=== PATIENT | male | born 1955 | race Caucasian/White ===

== ENCOUNTER 2023-02-02 01:32 | Day surgery (SDC) | payer MEDICARE, OTHER, SELFPAY ==
[2023-01-21 11:50] VITALS: BMI 43.0
[2023-02-02 06:37] VITALS: BP 153/76; PULSE 71; RESP 16; TEMP 36.4; O2SAT 96; BMI 45.6
[2023-02-02] MEDS: LACTATED RINGERS 1,000 ML 150 ML IV CONT (06:53)
--- NOTE | 2023-02-02 07:27 | PM.HPGS ---
History of Present Illness History of Present Illness Consent: Risks, benefits, and alternatives have been discussed and questions answered. Patient agrees to proceed with procedure. Chief complaint: neoplasm screening Narrative: Mian Marsh is a 67 year old male Presents for screening colonoscopy. Patient has current weight appetite bowel movements are normal. Patient denies abdominal pain. He has had no bleeding. Family history noncontributory. He may have had a screening colonoscopy more than 15 years ago. Review of Systems Review of Systems: Review of systems noncontributory. [facility] Past Medical History Medical History (Updated 11/03/22 @ 14:49 by Rashawn Thakur MD) Allergies Body mass index (BMI) 45.0-49.9, adult Colon cancer screening DM type 2 (diabetes mellitus, type 2) Encounter to establish care Hypersomnolence Jock itch Nasal polyps Prostate cancer screening Umbilical hernia Family History Family History (Updated 11/03/22 @ 14:49 by Rashawn Thakur MD) Father Hypertension Heart disease Mother Heart disease Hypertension Cerebrovascular accident Sibling Esophageal cancer Cerebrovascular accident Hypertension Alcoholism Diabetes mellitus Heart disease Son Diabetes type I Social History Social History Social History: Pt quit smoking in 1998. Smoking packs per day: 1.5 Smoking cigarettes per day: 30.0 Years smoked: 30 Smoking pack-years: 45.00 Smoking status: Former smoker Tobacco type: cigarettes Second hand tobacco smoke exposure: No Alcohol intake: current Drinks per week: 1 Alcohol use details: rare, social ETOH Substance use: never Substance use type: does not use Lack of Transportation: No Lack of Food: Never True Current Housing: I Have Housing Concerned About Future Housing: No Difficulty Paying Gas/Electric Bills: No Difficulty Paying for Meds: No Currently Unemployed: No Education: Associate Degree Difficulty w/ Childcare or Family Care: No Living arrangements: with family Occupation/Education: occupation Gender identity (if verbalized by the patient): Male Spiritual care concerns: No Meds Home Medications and Allergies Home Medications Medication Instructions Recorded Confirmed Type zolpidem 10 mg tablet (Ambien) 10 mg PO ONCE #1 tablet 10/14/22 02/02/23 Rx cholecalciferol (vitamin D3) 50 50 mcg PO DAILY #90 caps 10/26/22 02/02/23 Rx mcg (2,000 unit) capsule fluticasone propionate 50 See Rx Instructions .Route 12/17/22 02/02/23 Rx mcg/actuation nasal .COMPLEX #48 grams spray,suspension Allergies Allergy/AdvReac Type Severity Reaction Status Date / Time No Known Allergies Allergy Mild Verified 02/02/23 06:42 Vital Signs Vital Signs - 24 hr 02/02/23 06:37 Temperature 97.6 F Pulse Rate 71 Respiratory Rate 16 Blood Pressure 153/76 H Pulse Oximetry 96 Oxygen Delivery Room Air Exam Narrative: Physical exam reveals patient to be alert. Vital signs stable. HEENT exam is unremarkable. Patient is anicteric. Lungs are clear to auscultation and percussion. Heart is without murmur or extra sounds. Abdomen bowel sounds are present soft nontender with no organomegaly. Digital external rectal exam is normal. Assessment and Plan Assessment and plan (1) Colon cancer screening: Code(s): Z12.11 - Encounter for screening for malignant neoplasm of colon Status: Acute Assessment and Plan: Patient presents for screening colonoscopy. He appears to be at average risk for colon polyps. Further recommendations may be given after endoscopy.
--- NOTE | 2023-02-02 08:01 | WPDANESEPPF ---
Anes - Initial Pre Proc Eval Procedure: Operation Date: 02/02/23 08:00 Proposed Procedures p Screening Colonoscopy - Gregorio Estrada MD Date/Time: 02/02/23 08:01 Surgeon: Gregorio Estrada MD Pre Op Diagnosis: neoplasm screening Patient Data Age: 67 Gender: M Height: 1.8 m Weight: 148.2 kg Last Vital Signs Temp 97.6 F 02/02/23 06:37 Pulse 71 02/02/23 06:37 Resp 16 02/02/23 06:37 BP 153/76 H 02/02/23 06:37 Pulse Ox 96 02/02/23 06:37 O2 Del Method Room Air 02/02/23 06:37 Allergies Allergy/AdvReac Type Severity Reaction Status Date / Time No Known Allergies Allergy Mild Verified 02/02/23 06:42 Home Medications Medication Instructions Recorded Confirmed Type zolpidem 10 mg tablet (Ambien) 10 mg PO ONCE #1 tablet 10/14/22 02/02/23 Rx cholecalciferol (vitamin D3) 50 50 mcg PO DAILY #90 caps 10/26/22 02/02/23 Rx mcg (2,000 unit) capsule fluticasone propionate 50 See Rx Instructions .Route 12/17/22 02/02/23 Rx mcg/actuation nasal .COMPLEX #48 grams spray,suspension Patient hx anesthesia problems: none Family hx anesthesia problems: none Results Review: All pre-operative results and documents have been reviewed as part of the pre-operative evaluation. [facility] Past Medical History Medical History (Updated 11/03/22 @ 14:49 by Rashawn Thakur MD) Allergies Body mass index (BMI) 45.0-49.9, adult Colon cancer screening DM type 2 (diabetes mellitus, type 2) Encounter to establish care Hypersomnolence Jock itch Nasal polyps Prostate cancer screening Umbilical hernia Family History Family History (Updated 11/03/22 @ 14:49 by Rashawn Thakur MD) Father Hypertension Heart disease Mother Heart disease Hypertension Cerebrovascular accident Sibling Esophageal cancer Cerebrovascular accident Hypertension Alcoholism Diabetes mellitus Heart disease Son Diabetes type I Social History Social History Social History: Pt quit smoking in 1998. Smoking packs per day: 1.5 Smoking cigarettes per day: 30.0 Years smoked: 30 Smoking pack-years: 45.00 Smoking status: Former smoker Tobacco type: cigarettes Second hand tobacco smoke exposure: No Alcohol intake: current Drinks per week: 1 Alcohol use details: rare, social ETOH Substance use: never Substance use type: does not use Lack of Transportation: No Lack of Food: Never True Current Housing: I Have Housing Concerned About Future Housing: No Difficulty Paying Gas/Electric Bills: No Difficulty Paying for Meds: No Currently Unemployed: No Education: Associate Degree Difficulty w/ Childcare or Family Care: No Living arrangements: with family Occupation/Education: occupation Gender identity (if verbalized by the patient): Male Spiritual care concerns: No Anes - Eval Final PreProcedure Day of Procedure 02/02/23 08:01 Patient weight: morbidly obese Heart: regular rate and rhythm Lungs: clear to auscultation Airway: Mallampati scale class III Neurological: alert and oriented Last oral intake: >/= 8 hours ASA classification: III Emergent: no Anesthetic plan: proceed Anesthesia type and monitoring: general GIVS and standard monitoring Results Review: All pre-operative results and documents have been reviewed as part of the pre-operative evaluation. Informed Consent: The patient's anesthetic plan and its attendant risks and benefits were discussed with the patient/family/POA. Questions were solicited and answers provided to the satisfaction of the patient/family/POA.
[2023-02-02] MEDS: SIMETHICONE ORAL SUSPENSION 20 MG/0.3 ML 30 ML BOTTLE 0.6 ML IRRIGATION (08:20)
[2023-02-02 08:35] VITALS: BP 125/73; PULSE 76; RESP 20; O2SAT 99
[2023-02-02 08:45] VITALS: BP 136/82; PULSE 68; RESP 19; O2SAT 97
[2023-02-02 08:55] VITALS: BP 134/85; PULSE 66; RESP 20; O2SAT 99
== END 2023-02-02 09:03 | disposition home or self-care (01) ==
PROVIDERS: PCP Internal Medicine; Visit Provider Internal Medicine Gastroenterology
PROC: 0DJD8ZZ Inspection of Lower Intestinal Tract, Via Natural or Artificial Opening Endoscopic (ICD-10-PCS; CPT 45378; principal; 2023-02-02 08:00)
DX: Z12.11 Encounter for screening for malignant neoplasm of colon (principal); D12.3 Benign neoplasm of transverse colon; D17.5 Benign lipomatous neoplasm of intra-abdominal organs; K64.8 Other hemorrhoids; E11.9 Type 2 diabetes mellitus without complications; Z87.891 Personal history of nicotine dependence; E66.01 Morbid (severe) obesity due to excess calories; Z68.42 Body mass index [BMI] 45.0-49.9, adult
CPT/HCPCS: 45385; 88305; J2704; J7120

== ENCOUNTER 2023-03-30 06:16 | Outpatient (CLI) | payer MEDICARE, OTHER, SELFPAY ==
--- NOTE | 2023-04-15 21:21 | WPDSLEEPSTUD ---
Sleep Study Date of Study: 03/30/23 Ordering Provider: Ellis Muhammad MD Interpreting Physician: Sydni Hernandez DO Sleep Study Type: Split Polysomnogram Height: 1.83 m Weight: 147.418 kg Body Mass Index: 44.0 Neck Circumference (inches): 19 [place]: 15 Reason for Sleep Study Snoring, unrefreshing sleep Sleep History The patient is a 68-year-old male with diabetes, hyperlipidemia, morbid obesity and history of tobacco use that had a sleep study ordered by his primary care physician for evaluation of sleep apnea. The patient frequently awakens from sleep short of breath. He frequently awakens at night with heartburn, belching or cough. He constantly snores loudly enough that others complain. He constantly has trouble sleeping when he has a cold. He occasionally wakes up gasping for air throughout the night. He frequently has breathing problems at night observed by himself or others. He rarely sweats excessively at night. He occasionally has heart palpitations or irregular heartbeats during the night. He occasionally falls asleep during the day but never while driving. He denies sleep paralysis and cataplexy. He rarely has trouble at school or work due to sleepiness. He frequently experiences vivid dreamlike scenes upon awakening or falling asleep. He denies feeling afraid of going to sleep. He rarely has nightmares. He occasionally remembers his point he frequently has thoughts racing through his mind. He occasionally feels sad or depressed. He rarely has anxiety. He rarely has muscular tension. He frequently notices parts of his body jerk. He frequently kicks during the night. He rarely has crawling and aching feelings in his legs but occasionally has leg pain during the night. He denies grinding his teeth during sleep and denies awakening with morning jaw pain. He is occasionally bothered by pain during the day but rarely awakened by pain during the night. He occasionally wakes up feeling stiff in the morning. He occasionally wakes up with sore or achy muscles. He occasionally wakes up with pain in the neck, spine and other joints. He goes to bed at 11:30 p.m. on weekdays and at 12:30 a.m. on the weekends. He can take him up to an hour to fall asleep. He wakes up 3-4 times throughout the night to urinate and is able to fall back asleep within 5 minutes. He wakes up at 6:00 a.m. on both weekdays and weekends. He typically gets 4 hours of sleep per night. He will stay in bed for 5 minutes after waking up in the morning. He currently lives with his . He denies consuming any caffeinated beverages within 2 hours of bedtime. He denies engaging in physical exercise before bedtime. He will read and watch television before falling asleep. He will take naps in the afternoon or the evening but they are not refreshing. He consumes 2 cups of caffeinated beverage per day. He will have 1-2 alcoholic beverages once monthly. He quit smoking cigarettes 30 years ago. He denies recreational drug use. 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 Smoking packs per day: 1.5 Smoking cig
[2023-04-15 21:35] VITALS: BMI 44.0
== END 2023-03-31 08:24 | disposition home or self-care (01) ==
LOC: ANHCSM 06:16
PROVIDERS: PCP Internal Medicine; Visit Provider Internal Medicine
DX: G47.33 Obstructive sleep apnea (adult) (pediatric) (principal); I49.9 Cardiac arrhythmia, unspecified
CPT/HCPCS: 95811

== ENCOUNTER 2024-05-04 10:20 | Outpatient (CLI) | payer MEDICARE, OTHER, SELFPAY ==
--- OUTSIDE RECORDS SUMMARY | 2024-05-11 02:39 | XMS_ITS | Continuity of Care Document ---
Author Name [facility] Organization [facility] Care Team Providers Care Cowlman Name Role Phone [facility] Unavailable Unavailable Medications Combined list of outpatient medications from Department of Defense and Veterans Affairs facilities.Medications provided include 1) outpatient medications from the last 15 months, and 2) patient-reported medications. Medication Details Route Status Patient Instructions Prescription Expires Prescription Number Last Dispense Date Ordering Provider Order Date Order Qty Source ATORVASTATI N CALCIUM (atorvastat in calcium), 40 MG, TABLET, ORAL, [facility], 500 ea. BOTTLE Active [id number] 4 2023 90 Pharmac y Data Transac tion Service Facilit y ATORVASTATI N CALCIUM (atorvastat in calcium), 40 MG, TABLET, ORAL, [facility], 1000 ea. BOTTLE Cancele d [id number] : 2023 0 Pharmac y Data Transac tion Service Facilit y ATORVASTATI N CALCIUM (atorvastat in calcium), 40 MG, TABLET, ORAL, [facility], 1000 ea. BOTTLE Active [id number] 4 2023 90 Pharmac y Data Transac tion Service Facilit y ATORVASTATI N CALCIUM (atorvastat in calcium), 40 MG, TABLET, ORAL, [facility], 1000 ea. BOTTLE Cancele d [id number] : 2023 0 Pharmac y Data Transac tion Service Facilit y DOXYCYCLINE HYCLATE (doxycyclin e hyclate), 100 MG, TABLET, ORAL, [employer], 50 ea. BOTTLE Active [id number] 2023 20 Pharmac y Data Transac tion Service Facilit y FLUTICASONE PROPIONATE (FLUTICASON E PROPIONATE) , 50 MCG, SPRAY SUSP, NASAL, [facility] 16 g AER W/ADAP Cancele d [id number] : 2023 0 Pharmac y Data Transac tion Service Facilit y FLUTICASONE PROPIONATE (FLUTICASON E PROPIONATE) , 50 MCG, SPRAY SUSP, NASAL, [employer] 16 g AER W/ADAP Cancele d [id number] : 2023 0 Pharmac y Data Transac tion Service Facilit y FLUTICASONE PROPIONATE (FLUTICASON E PROPIONATE) , 50 MCG, SPRAY SUSP, NASAL, [employer] 16 g AER W/ADAP Active [id number] 4 2023 48 Pharmac y Data Transac tion Service Facilit y FLUTICASONE PROPIONATE (FLUTICASON E PROPIONATE) , 50 MCG, SPRAY SUSP, NASAL, [employer] 16 g AER W/ADAP Cancele d [id number] : 2023 0 Pharmac y Data Transac tion Service Facilit y FLUTICASONE PROPIONATE (FLUTICASON E PROPIONATE) , 50MCG, SPRAY SUSP, NASAL, [employer]OT[employer] CHAO, 16 g AER W/ADAP Active [id number] 2023 48 Pharmac y Data Transac tion Service Facilit y SYNJARDY XR (empagliflo zin/metform in HCl), 25-1000 MG, TAB BP 24H, ORAL, [facility]., 30 ea. BOTTLE Cancele d [id number] : 2023 0 Pharmac y Data Transac tion Service Facilit y SYNJARDY XR (empagliflo zin/metform in HCl), 25-1000 MG, TAB BP 24H, ORAL, [facility] ING., 30 ea. BOTTLE Active [id number] 4 2023 5 Pharmac y Data Transac tion Service Facilit y SYNJARDY XR (empagliflo zin/metform in HCl), 25-1000 MG, TAB BP 24H, ORAL, [employer] ING., 30 ea. BOTTLE Active [id number] 4 2023 90 Pharmac y Data Transac tion Service Facilit y SYNJARDY XR (empagliflo zin/metform in HCl), 25-1000 MG, TAB BP 24H, ORAL, [employer]., 90 ea. BOTTLE Cancele d [id number] : 2023 0 Pharmac y Data Transac tion Service Facilit y SYNJARDY XR (empagliflo zin/metform in HCl), 25-1000 MG, TAB BP 24H, ORAL, [employer]G., 90 ea. BOTTLE Active [id number] 4 2023 90 Pharmac y Data Transac tion Service Facilit y SYNJARDY XR (empagliflo zin/metform in HCl), 25-1000 MG, TAB BP 24H, ORAL, [employer]EHR[employer]ER ING., 90 ea. BOTTLE Cancele d [id number] : 2023 0 Pharmac y Data Transac tion Service Facilit y Encounters Combined list of: 1) Encounters from Department of Veterans Affairs facilities going back up to thelast 18 months. 2) Encounters from the Department of [facility] facilities going back up to 280 months. Location Location Details Encounter Type Encounter Number Reason For Visit Attending Provider ADM Date DC Date Status Disposition Source [facility] Outpatient Encounter [id number] 03/08 [facility] Procedures Combined list of: 1) Procedures from Department of [facility] facilities going back up to thelast 18 months, not all [place] non-surgical procedures are included; 2) All procedures from the Department of [facility] facilities. Procedure Procedure Type Code Date Perfomer Comments Mat vee LOCAL EXCISION OR DESTRUCTIO N OF INTRANASAL LESION 08/29/1990 [facility] Social History Combined list of available smoking, tobacco, and other social history from Department of Defense and Veterans Affairs facilities. Social History Type Response Date Comment Sourmars vee This section is an empty social history section. [facility]
--- OUTSIDE RECORDS SUMMARY | 2024-05-11 02:40 | XMS_ITS | Data Portability ---
[facility] Address [address] [place] [address] Assessment No assessment recorded. Plan of Treatment Reminders Order Date Submit Date Provider Last Modified By Organization Details Last Modified Time Details Appointments None recorde d. Lab None recorde d. Referral orthope dic surgeon referra l - Referra l request submitt ed to [facility] . They will fax you nikki rosario. 2016 017 [facility], [address] [place], [address], 7 16:50:30 Procedures None recorde d. Surgeries None recorde d. Imaging XR, knee, 4 or more view 2016 017 [facility] ([facility]), [address] [place], [address], 7 18:07:08 Medication Orders Augment in 500 mg-125 mg tablet 2013 014 [email or web address] [facility][id number], [address] [place], [address], 7 11:14:07 metform in 500 mg tablet 2020 021 [facility], [address] [place] [address], [address], 1 14:22:46 Enteric Coated Aspirin 81 mg tablet, delayed release 2020 021 INTERFACE [facility], [address] [place] [address], [address], 14:22:44 atorvas tatin 20 mg tablet 2020 021 INTERFACE [facility], [address] [place] [address], [address], 14:22:44 Patient TargetsNo targets recorded. Patient Instructions Encounter Date Encounter Id Patient Instructions Last Modified By Organization Details Last Modified Time 04/29/2020 [id number] When You Want to Lose Weight: Care Instructions [facility] Not available 04/29/2020 14:22:42 type 2 diabetes: care instructions si Not available 04/29/2020 14:22:42 Reason for Referral Orthopedic Surgeon Referral for Knee joint painful on movement Referral request submitted to [facility]. They will fax you referral. Referring Physician: Eliza De La Rosa, Internal Medicine, Encounter Date: 08/25/2016 Results Created Date Observation Date Name Description Value Unit Range Abnormal Flag Note LastModifiedBy Organization Detail LastModifiedTime 04/22/1904/23/2020 lipid panel , serum cholesterol, total 207 mg/dL <200 high Not Available [employer] [address] [place], [address], 04/23/2020 05:03:45 04/22/1904/23/2020 lipid panel , serum HDL cholesterol 48 mg/dL > or = 40 normal Not Available [employer] [address] [place], [address], 04/23/2020 05:03:45 04/22/1904/23/2020 lipid panel , serum triglyceride s 134 mg/dL <150 normal Not Available [employer] [address] [place], [address], 04/23/2020 05:03:45 04/22/1904/23/2020 lipid panel , serum LDL-choleste rol 134 mg/dL _(hamilton c) high Refer ence range : <100 Arnaud able range <100 mg/dL for prima ry preve ntion ; <70 mg/dL for patie nts with CHD or diabe tic patie nts with > or = 2 CHD risk facto rs. LDL-C is now calcu lated using the [facility] kins grayson avalos, which is a valid ated novel jose quinn than the Fried alex chaseat ion in the estim ation of LDL-C . Emilee avalos SS et al. DALIA. 2013; 310(1 9): 2061- 2068 (http ://ed ucati on.Qu estDi Empow Studioss. com/f aq/FA Q164) Not Available [facility] [address], [place], [address], 04/23/2020 05:03:45 04/22/1904/23/2020 lipid panel , serum chol/HDLC ratio 4.3 (calc ) <5.0 normal Not Available [facility] [address] [address] [place], [address], 04/23/2020 05:03:45 04/22/1904/23/2020 lipid panel , serum non HDL cholesterol 159 mg/dL _(hamilton c) <130 high For patie nts with diabe chuy plus 1 major ASCVD risk facto r, treat ing to a non-H DL-C goal of <100 mg/dL (LDL- C of <70 mg/dL ) is consi moosed a gerardo cerws optio n. Not Available [employer] [facility] [address], [place], [address], 04/23/2020 05:03:45 04/22/1904/23/2020 CMP, serum or plasm a glucose 223 mg/dL 65-99 high Fasti ng refer ence inter caroline For someo ne witho ut known diabe chuy, a gluco se value >125 mg/dL indic ates that they may have diabe chuy and this shoul d be confi rmed with a follo w-up test. Not Available [facility] [address], [place], [address], 04/23/2020 05:03:46 04/22/1904/23/2020 CMP, serum or plasm a urea nitrogen (BUN) 12 mg/dL 7-25 normal Not Available [address], [address], 04/23/2020 05:03:46 04/22/1904/23/2020 CMP, serum or plasm a creatinine 0.87 mg/dL 0.70-1 .25 normal For patie nts >49 years of age, the refer ence limit for Creat inine is appro ximat erasmo 13% highe r for peopl e ident ified as Afric an-Am suzette n. Not Available [address], [address], 04/23/2020 05:03:46 04/22/1904/23/2020 CMP, serum or plasm a eGFR non-afr. andorran 89 mL/mi n/1.7 3m2 > or = 60 normal Not Available [address] [address] [place], [address], 04/23/2020 05:03:46 04/22/1904/23/2020 CMP, serum or plasm a eGFR 104 mL/mi n/1.7 3m2 > or = 60 normal Not Available [employer] [address], [address], 04/23/2020 05:03:46 04/22/1904/23/2020 CMP, serum or plasm a BUN/creatini ne ratio NOT APPLIC ABLE (calc ) 6-22 Not Available [facility] [address], [address], 04/23/2020 05:03:46 04/22/1904/23/2020 CMP, serum or plasm a sodium 141 mmol/ L 135-14 6 normal Not Available [facility] [address], [address], 04/23/2020 05:03:46 04/22/1904/23/2020 CMP, serum or plasm a potassium 3.6 mmol/ L 3.5-5. 3 normal Not Available [address], [address], 04/23/2020 05:03:46 04/22/1904/23/2020 CMP, serum or plasm a chloride 102 mmol/ L 98-110 normal Not Available [address], [address], 04/23/2020 05:03:46 04/22/1904/23/2020 CMP, serum or plasm a carbon dioxide 29 mmol/ L 20-32 normal Not Available [address], [address], 04/23/2020 05:03:46 04/22/1904/23/2020 CMP, serum or plasm a calcium 8.9 mg/dL 8.6-10 .3 normal Not Available [address], [address], 04/23/2020 05:03:46 04/22/1904/23/2020 CMP, serum or plasm a protein, total 6.3 g/dL 6.1-8. 1 normal Not Available [address], [address], 04/23/2020 05:03:46 04/22/1904/23/2020 CMP, serum or plasm a albumin 3.8 g/dL 3.6-5. 1 normal Not Available [facility] [address], [address], 04/23/2020 05:03:46 04/22/1904/23/2020 CMP, serum or plasm a globulin 2.5 g/dL_ (calc ) 1.9-3. 7 normal Not Available [facility] [address] [place], [address], 04/23/2020 05:03:46 04/22/19 21 04/23/2020 CMP, serum or plasm a albumin/glob ulin ratio 1.5 (calc ) 1.0-2. 5 normal Not Available [facility] [address] [address] [place], [address], 04/23/2020 05:03:46 04/22/19 21 04/23/2020 CMP, serum or plasm a bilirubin, total 0.8 mg/dL 0.2-1. 2 normal Not Available [facility] [address], [address], 04/23/2020 05:03:46 04/22/19 21 04/23/2020 CMP, serum or plasm a alkaline phosphatase 62 U/L 35-144 normal Not Available [employer] [address], [address], 04/23/2020 05:03:46 04/22/19 21 04/23/2020 CMP, serum or plasm a AST 17 U/L 10-35 normal Not Available [facility] [address], [address], 04/23/2020 05:03:46 04/22/19 21 04/23/2020 CMP, serum or plasm a ALT 19 U/L 9-46 normal Not Available [facility] [address], [address], 04/23/2020 05:03:46 04/22/1904/23/2020 PSA, serum or plasm a PSA, total 0.2 NG/mL < or = 4.0 normal The total PSA value from this assay syste m is stand ardiz ed again st the WHO stand lissa. The test resul t will be appro ximat erasmo 20% lower when garett red to the equim olar- stand ardiz ed total PSA (Mcdonald man Coult er). Garett rison of seria l PSA resul ts shoul d be inter prete d with this fact in mind. This test was perfo rmed using the Sieme ns chemi lumin escen t metho d. Value s obtai chris from diffe rent assay metho ds canno t be used inter rahman eably . PSA level s, regar dless of value , shoul d not be inter prete d as absol [place] evide nce of the prese nce or absen ce of disea se. Not Available [facility] [address] [place], [address], 04/23/2020 05:03:46 04/22/19 21 04/23/2020 HbA1c (hemo globi n A1c), blood hemoglobin A1C 9.3 %_of_ total _HGB <5.7 high For someo ne witho ut known diabe chuy, a hemog lobin A1c value of 6.5% or great er indic ates that they may have diabe chuy and this shoul d be confi rmed with a follo w-up test. For someo ne with known diabe chuy, a value <7% indic ates that their diabe chuy is well contr olled and a value great er than or equal to 7% indic ates subop timal contr ol. A1c targe ts shoul d be indiv idual ized based on durat ion of diabe chuy, age, comor bid condi tions , and other consi derat ions. Curre ntly, no conse nsus exist s regar ding use of hemog lobin A1c for diagn osis of diabe chuy for child que. Not Available [employer] [facility] [address], [place], [address], 04/23/2020 05:03:47 08/28/19 17 08/26/2016 XR, knee No observ ation record ed. [email or web address] [facility] [address], [place], [address], 08/28/2016 11:56:29 Result Notes None recorded. Problems Name Problem SNOMED Code Status Onset Date Resolution Date Notes Provider Name and Address Organization Details Recorded Time Acute bronchitis 70681403 Active Eliza De La Rosa MD Attn: Ryann escalera,[address], [place], [address], [facility] 4 14:54:22 Acute pharyngitis 100247602 Active Eliza De La Rosa MD Attn: Ryann escalera,[address], [place], [address], [facility] 4 14:54:22 Obesity 682502601 Active Eliza De La Rosa MD Attn: Ryann escalera,[address], [place], [address], [facility] 4 14:54:22 Problem Notes None recorded. Procedures Surgical History None recorded. Imaging Results Imaging Date Name Status LastModified by Organiz ation Details LastModified Time 08/26/2016 XR, knee completed [email or web address] [facility] [address], [place], [address], 08/28/2016 11:56:29 Procedure Notes None recorded. Medical Equipment None Reported. Allergies No known drug allergies Medications Name Sig Start Date Stop Date Status Note LastModified by Organization Details LastModified Time Prescriptio n - New 08/25 completed Not Available Not Available Not Available metformin 500 mg tablet Take 1 tablet twice a day by oral route after meals for 90 days. 2020 active Not Available Not Available Not Avai lable atorvastati n 20 mg tablet Take 1 tablet every day by oral route at dinner for 90 days. 2020 active Not Available Not Available Not Avai lable gabapentin 300 mg capsule TAKE 1 CAPSULE BY MOUTH THREE TIMES DAILY DIRECTED active Not Available Not Available No t Available Enteric Coated Aspirin 81 mg tablet,may yed release Take 1 tablet every day by oral route after meals for 90 days. 2020 active Not Available Not Available Not Avai lable Augmentin 500 mg-125 mg tablet Take 1 tablet every 12 hours by oral route after meals for 7 days. 08/25 completed Not Available Not Available Not Available Vitals Date Recorded Respiratory rate Body weight Heart rate Body mass index (BMI) Body height Body temperature Systolic blood pressure Diastolic blood pressure Provider Name and Address Organization Details Last Updated DateTime 4 18 /min 426513. 6347 g 92 /min 42 kg/m2 182.88 cm 97.8 [degF] 124 mm[Hg] 86 mm[Hg] Aggie Polo RN [facility] 4 13:46:19 Date Recorded Body height Provider Name an d Address Organization Details Last Updated DateTime 08/25/2016 181.61 cm Ludwig Mcgovern MA [facility] 2016 11:14:53 Date Recorded Body weight Body mass index (BMI) Provider Name and Address Organization Details Last Updated DateTime 08/25/2016 319022.14 g 45 kg/m2 Ludwig Mcgovern MA [facility] 08/25/2016 11:15:00 Date Recorded Body temperature Provider Name a nd Address Organization Details Last Updated DateTime 08/25/2016 98.2 [degF] Ludwig Mcgovern MA [facility] 08/25/2016 11:16:39 Date Recorded Oxygen saturation Oxygen saturation in Arterial blood by Pulse oximetry Provider Name and Address Organization Details Last Updated DateTime 08/25/2016 97 % 97 % Ludwig Mcgovern MA [facility] 08/25/2016 11:17:12 Date Recorded Heart rate Provider Name an d Address Organization Details Last Updated DateTime 08/25/2016 91 /min Ludwig Mcgovern MA [facility] 2016 11:17:15 Date Recorded Systolic blood pressure Diastolic blood pressure Provider Name and Address Organization Details Last Updated DateTime 08/25/2016 126 mm[Hg] 78 mm[Hg] Ludwig Mcgovern MA [facility] 08/25/2016 11:18:58 Social History None recorded. Functional Status None recorded. Mental Status None recorded. Family History Nothing Reported. Medical History Condition Response Coronary Artery Disease N Other N Atrial Fibrillation N High Blood Pressure N Thyroid Problems N Kidney or Bladder Problems N Depression N COPD N Blood Clots N GI Problems N Skin Problems N Anemia N Heart Attack (CT) N Diabetes N Anxiety Disorder N Muscle, Joint, or Bone Problems N Seizures/Epilepsy N Acid Reflux (GERD) N Cancer N Stroke N Allergies N Asthma N High Cholesterol N Hepatitis N Liver Disease N Headaches N Osteoporosis N Heart Failure N Immunizations Vaccine Type Date Status Note Provider Nam e and Address Organization Details Recorded Time COVID-19, mRNA, LNP-S, PF, 100 mcg/0.5mL dose or 50 mcg/0.25mL dose 07/04/2020 completed Angelina Hartley MA null, [place] [facility] 07/04/2020 17:25:55 COVID-19, mRNA, LNP-S, PF, 100 mcg/0.5mL dose or 50 mcg/0.25mL dose 08/01/2020 completed Jacqueline Husain MA null, [place] [facility] 08/01/2020 15:53:20 Past Encounters Encounter ID Performer Location Encounter Start Date Encounter Closed Date Diagnosis/Indication Diagnosis SNOMED-CT Code Diagnosis ICD10 Code Diagnosis Note [id number] Teresa Acosta is [facility] (Adult Med) [address] [place] [id number] 04/04/2014 11:49:26 04/04/2014 17:50:29 Acute bronchitis 00582499 Acute pharyngitis 635978849 Obesity 292554476 History of abdominal hernia 769522331 [id number] Eliza De La Rosa MD [facility] (Adult Med) [address] [place] [phone] 08/25/2016 10:54:52 08/25/2016 18:07:07 Knee joint painful on movement 318490609 M25.569 Painful right knee, recurrent. He prefers not to take any pain pills. He declines for the cane. [id number] [facility] [address] [place] [id number] 04/29/2020 08:25:24 04/30/2020 10:46:54 Type 2 diabetes mellitus without complication 928945224 E11.65 Discussed with patient, he agreed to try oral medication s. Will repeat CMP, HgA1c and lipid panel in about 2-3 months. He will try diabetic diet, exercisee and lose weight. Dyslipidem ia due to type 2 diabetes mellitus 2256162827 02 E78.5 Low animal and low saturated fat diet, Morbid obesity 545453972 E66.01 Diabetic diet, exercise and lose weight. [id number] JOHN Driscoll [address] [place] [address] 07/04/2020 15:17:09 07/05/2020 20:42:22 Administration of SARS-CoV-2 antigen vaccine 331064424 Z23 [id number] JOHN Driscoll [address] IM [address] [place] [address] 08/01/2020 15:14:28 08/02/2020 17:20:54 Administration of SARS-CoV-2 antigen vaccine 732454708 Z23 Health Concerns Section Related Observation LastModified by Organization Detai ls LastModified Time None Recorded Concern Status LastModified by Organization Details LastModified Time None Recorded Advance Directives Directive None Recorded Payers Encounter Date Sequence Insurance Name Policy Number Policy Ballard Covered Member ID Ballard Member ID Guarantor Name 04/04/2014 1 [facility] [id number] [facility] 08/25/2016 1 [facility] [id number] [facility] 04/29/2020 1 [place] [facility] [id number] [facility] 04/29/2020 2 [employer] (MEDICARE SUPPLEMENT) [facility] [id number] [facility] 07/04/2020 1 [place] [facility] [id number] [facility] 07/04/2020 2 [employer] - FOR LIFE (MEDICARE SUPPLEMENT) [facility] [id number] [facility] 08/01/2020 1 [place] [facility] [id number] [facility] 08/01/2020 2 [employer] - FOR LIFE (MEDICARE SUPPLEMENT) [facility] [id number] [facility] Notes Date Note Type Note Provider Name and Address Organization Details Recorded Time 04/29/2020 text/html This is phone visit, due to malin virus pandemic, he unsunderstood and agreed,NKDA, newly diagnosed type 2DM, with HgA1c 9.3% , normal PSA 0.2, fasting bloos sugar 223 Mg %, LDL 134 mg%, Non-HDL 159 mg%, second time times patient informed, initially he wants to try diet, exercise and lose weight , but now he changed his mind that he will try pill after his 's advice. Eliza De La Rosa MD Attn: [address] [place], [address], [place] [facility] 04/29/2020 14:22:49
--- NOTE | 2024-05-18 12:22 | WPDHOLTEREM ---
Holter/Event Monitor Holter/Event Monitor Date of procedure: 05/04/24 Holter/Event Procedure: 3-7 Day Holter Monitor Indications: Cardiac arrhythmia Conclusion: 1. 3 days holter monitor on 05/04/24. 2. Predominant rhythm is sinus rhythm. HR range 53-197 bpm; average HR 73 bpm. 3. There are occasional premature supraventricular complexes, rare supraventricular couplets, and rare supraventricular triplets. There are 7 episodes of supraventricular tachycardia, fastest at 197 bpm and longest lasting 15 seconds. 4. There are rare premature ventricular complexes and rare ventricular couplets. No ventricular tachycardia. 5. No significant pauses greater than 3 seconds. 6. No symptoms available for correlation.
== END 2024-05-04 10:21 | disposition home or self-care (01) ==
LOC: ANHCARD 10:22
PROVIDERS: PCP Internal Medicine; Visit Provider Internal Medicine
DX: R93.1 Abnormal findings on diagnostic imaging of heart and coronary circulation (principal); I49.9 Cardiac arrhythmia, unspecified
CPT/HCPCS: 93242

== ENCOUNTER 2024-07-04 07:59 | Outpatient (CLI) | payer MEDICARE, OTHER, SELFPAY ==
--- OUTSIDE RECORDS SUMMARY | 2024-07-04 08:09 | XMS_ITS | Continuity of Care Document ---
Author Name [facility] Organization [facility] Care Team Providers Care Evaluation Specialist Name Role Phone [facility] Unavailable Unavailable Encounters Combined list of: 1) Encounters from Department of Veterans Affairs facilities going backup to the last 18 months, not all [facility] inpatient encounters are included; 2) Encounters from the Department of Defense facilities going backup to 280 months. Location Location Details Encounter Type Encounter Number Reason For Visit Attending Provider ADM Date DC Date Status Disposition Source [facility] Outpatient Encounter [id number] 03/08 [facility]
--- OUTSIDE RECORDS SUMMARY | 2024-07-04 08:09 | XMS_ITS | Data Portability ---
[facility] [address] [place] [address] Assessment No assessment recorded. Plan of Treatment Reminders Order Date Submit Date Provider Last Modified By Organization Details Last Modified Time Details Appointments None recorde d. Lab None recorde d. Referral orthope dic surgeon referra l - Referra l request submitt ed to [facility] . They will fax you nikki rosario. 2016 017 [facility], [address] [facility], [place], [address], 7 16:50:30 Procedures None recorde d. Surgeries None recorde d. Imaging XR, knee, 4 or more view 2016 017 [facility] ([facility]), [address] [place], [address], 7 18:07:08 Medication Orders metform in 500 mg tablet 2020 021 [facility], [address] [place] [address], [address], 14:22:46 Enteric Coated Aspirin 81 mg tablet, delayed release 2020 021 [facility], [address] [place] [address], [address], 14:22:44 atorvas tatin 20 mg tablet 2020 021 [facility], [address] [place] [address], [address], 14:22:44 Augment in 500 mg-125 mg tablet 2013 014 [email or web address] [facility] #[id number], [address] [place], [address], 7 11:14:07 Patient TargetsNo targets recorded. Patient Instructions Encounter Date Encounter Id Patient Instructions Last Modified By Organization Details Last Modified Time 04/29/2020 [id number] When You Want to Lose Weight: Care Instructions [facility] Not available 04/29/2020 14:22:42 type 2 diabetes: care instructions [facility] Not available 04/29/2020 14:22:42 Reason for Referral [...] total 207 mg/dL <200 high Not Available [facility] [address] [place], [address], 04/23/2020 05:03:45 04/22/1904/23/2020 lipid panel , serum HDL cholesterol 48 mg/dL > or = 40 normal Not Available [facility] [address] [place], [address], 04/23/2020 05:03:45 04/22/1904/23/2020 lipid panel , serum triglyceride s 134 mg/dL <150 normal Not Available [facility] [id number] [place], [place] [address] [place], [address], 04/23/2020 05:03:45 04/22/1904/23/2020 lipid panel , serum LDL-choleste rol 134 mg/dL _(hamilton c) high Refer ence range : <100 Arnaud able range <100 mg/dL for prima ry preve ntion ; <70 mg/dL for patie nts with CHD or diabe tic patie nts with > or = 2 CHD risk facto rs. LDL-C is now calcu lated using the Emilee n-[facility] kins grayson avalos, which is a valid ated novel jose quinn than the Fried alex chaseat ion in the estim ation of LDL-C . Emilee avalos SS et al. DALIA. 2013; 310(1 9): 2061- 2068 (http ://ed ucati on.Qu estDi Spinnakrs. com/f aq/FA Q164) Not Available [facility] [address], [place], [address], 04/23/2020 05:03:45 04/22/1904/23/2020 lipid panel , serum chol/HDLC ratio 4.3 (calc ) <5.0 normal Not Available [facility] [address] [address] [place], [address], 04/23/2020 05:03:45 04/22/1904/23/2020 lipid panel , serum non HDL cholesterol 159 mg/dL _(hamilton c) <130 high For patie nts with diabe chuy plus 1 major ASCVD risk facto r, treat ing to a non-H DL-C goal of <100 mg/dL (LDL- C of <70 mg/dL ) is consi moosed a gerardo crews optio n. Not Available [facility] [address], [place], [address], 04/23/2020 05:03:45 04/22/1904/23/2020 CMP, serum or plasm a glucose 223 mg/dL 65-99 high Fasti ng refer ence inter caroline For someo ne witho ut known diabe chuy, a gluco se value >125 mg/dL indic ates that they may have diabe chuy and this shoul d be confi rmed with a follo w-up test. Not Available [facility] [address], [place], [address], 04/23/2020 05:03:46 04/22/1904/23/2020 CMP, serum or plasm a urea nitrogen (BUN) 12 mg/dL 7-25 normal Not Available [address], [address], 04/23/2020 05:03:46 04/22/1904/23/2020 CMP, serum or plasm a creatinine 0.87 mg/dL 0.70-1 .25 normal For patie nts >49 years of age, the refer ence limit for Creat inine is appro ximat erasmo 13% highe r for peopl e ident ified as Afric an-Am suzette n. Not Available [address], [address], 04/23/2020 05:03:46 04/22/1904/23/2020 CMP, serum or plasm a eGFR non-afr. belgian 89 mL/mi n/1.7 3m2 > or = 60 normal Not Available [place] [address] [place], [address], 04/23/2020 05:03:46 04/22/1904/23/2020 CMP, serum or plasm a eGFR 104 mL/mi n/1.7 3m2 > or = 60 normal Not Available [facility] [address], [address], 04/23/2020 05:03:46 04/22/1904/23/2020 CMP, serum or plasm a BUN/creatini ne ratio NOT APPLIC ABLE (calc ) 6-22 Not Available [facility] [address], [address], 04/23/2020 05:03:46 04/22/1904/23/2020 CMP, serum or plasm a sodium 141 mmol/ L 135-14 6 normal Not Available [facility] [address], [address], 04/23/2020 05:03:46 04/22/1904/23/2020 CMP, serum or plasm a potassium 3.6 mmol/ L 3.5-5. 3 normal Not Available [address], [address], 04/23/2020 05:03:46 04/22/1904/23/2020 CMP, serum or plasm a chloride 102 mmol/ L 98-110 normal Not Available [address], [address], 04/23/2020 05:03:46 04/22/1904/23/2020 CMP, serum or plasm a carbon dioxide 29 mmol/ L 20-32 normal Not Available [address], [address], 04/23/2020 05:03:46 04/22/1904/23/2020 CMP, serum or plasm a calcium 8.9 mg/dL 8.6-10 .3 normal Not Available [address], [address], 04/23/2020 05:03:46 04/22/1904/23/2020 CMP, serum or plasm a protein, total 6.3 g/dL 6.1-8. 1 normal Not Available [address], [address], 04/23/2020 05:03:46 04/22/1904/23/2020 CMP, serum or plasm a albumin 3.8 g/dL 3.6-5. 1 normal Not Available [facility] [address], [address], 04/23/2020 05:03:46 04/22/1904/23/2020 CMP, serum or plasm a globulin 2.5 g/dL_ (calc ) 1.9-3. 7 normal Not Available [facility] [address] [place], [address], 04/23/2020 05:03:46 04/22/19 21 04/23/2020 CMP, serum or plasm a albumin/glob ulin ratio 1.5 (calc ) 1.0-2. 5 normal Not Available [facility] [place] [address] [address] [place], [address], 04/23/2020 05:03:46 04/22/19 21 04/23/2020 CMP, serum or plasm a bilirubin, total 0.8 mg/dL 0.2-1. 2 normal Not Available [facility] [address], [address], 04/23/2020 05:03:46 04/22/19 21 04/23/2020 CMP, serum or plasm a alkaline phosphatase 62 U/L 35-144 normal Not Available [facility] [address], [address], 04/23/2020 05:03:46 04/22/19 21 04/23/2020 CMP, serum or plasm a AST 17 U/L 10-35 normal Not Available [facility] [address], [address], 04/23/2020 05:03:46 04/22/19 21 04/23/2020 CMP, serum or plasm a ALT 19 U/L 9-46 normal Not Available [facility] [address], [address], 04/23/2020 05:03:46 04/22/1904/23/2020 PSA, serum or plasm [...] not be inter prete d as absol michael evide nce of the prese nce or absen ce of disea se. Not Available [facility] [address] [place], [address], 04/23/2020 05:03:46 04/22/19 21 04/23/2020 HbA1c (hemo [...] diabe chuy for child que. Not Available [facility] [address], [place], [address], 04/23/2020 05:03:47 08/28/19 17 08/26/2016 XR, knee No observ ation record ed. [email or web address] [facility] [address], [place], [address], 08/28/2016 11:56:29 Result Notes None recorded. Problems Name Problem SNOMED Code Status Onset Date Resolution Date Notes Provider Name and Address Organization Details Recorded Time Acute bronchitis 38250515 Active Eliza De La Rosa MD Attn: Ryann escalera,[address], [place], [address], [facility] 4 14:54:22 Acute pharyngitis 881034642 Active Eliza De La Rosa MD Attn: Ryann escalera,[address], [place], [address], [facility] 4 14:54:22 Obesity 161718166 Active Eliza De La Rosa MD Attn: Ryann escalera,[address], [place], [address], [facility] 4 14:54:22 Problem Notes None recorded. Procedures Surgical History None recorded. Imaging Results Imaging Date Name Status LastModified by Organiz ation Details LastModified Time 08/26/2016 XR, knee completed [email or web address] [facility] [address], [place], [address], 08/28/2016 11:56:29 Procedure Notes None recorded. Medical [...] Details Last Updated DateTime 4 18 /min 054287. 6347 g 92 /min 42 kg/m2 182.88 cm 97.8 [degF] 124 mm[Hg] 86 mm[Hg] Aggie Polo RN [facility] 4 13:46:19 Date Recorded Body height Body weight Body mass index (BMI) Body temperature Oxygen saturation Oxygen saturation in Arterial blood by Pulse oximetry Heart rate Systolic blood pressure Diastolic blood pressure Provider Name and Address Organization Details Last Updated DateTime 7 181.61 cm 417773. 14 g 45 kg/m2 98.2 [degF] 97 % 97 % 91 /min 126 mm[Hg] 78 mm[Hg] Ludwig Mcgovern MA [facility] 7 11:18:58 Social History None recorded. Functional Status None recorded. Mental Status None recorded. Family History Nothing Reported. Medical History Condition Response Coronary Artery Disease N Other N High Blood Pressure N Atrial Fibrillation N Kidney or Bladder Problems N Thyroid Problems N GI Problems N Depression N COPD N Blood Clots N Skin Problems N Anemia N Heart Attack ([place]) N Anxiety Disorder N Diabetes N Muscle, Joint, or Bone Problems N Seizures/Epilepsy N Acid Reflux (GERD) N Cancer N Stroke N Asthma N Allergies N High Cholesterol N Hepatitis N Liver Disease N Headaches N Heart Failure N Osteoporosis N Immunizations Vaccine Type Date Status Note [...] SNOMED-CT Code Diagnosis ICD10 Code Diagnosis Note [id number] Teresa Mendez (Adult Med) [address] [place] [address] 04/04/2014 11:49:26 04/04/2014 17:50:29 Acute bronchitis 24480217 Acute pharyngitis 611244149 Obesity 101710679 History of abdominal hernia 541383634 [id number] MD Vanessa Wahl (Adult Med) [address] [place] [phone] 08/25/2016 10:54:52 08/25/2016 18:07:07 Knee joint painful on movement 618453885 M25.569 Painful right knee, recurrent. He prefers not to take any pain pills. He declines for the cane. [id number] MD Vanessa Wahl (Adult Med) [address] [place] [address] 04/29/2020 08:25:24 04/30/2020 10:46:54 Type 2 diabetes mellitus without complication 429290320 E11.65 Discussed with patient, he agreed to try oral medication s. Will repeat CMP, HgA1c and lipid panel in about 2-3 months. He will try diabetic diet, exercisee and lose weight. Dyslipidem ia due to type 2 diabetes mellitus 2766553887 02 E78.5 Low animal and low saturated fat diet, Morbid obesity 446589524 E66.01 Diabetic diet, exercise and lose weight. [id number] JOHN Driscoll [address] [place] [address] 07/04/2020 15:17:09 07/05/2020 20:42:22 Administration of SARS-CoV-2 antigen vaccine 627329747 Z23 [id number] JOHN Driscoll [address] [place] [address] 08/01/2020 15:14:28 08/02/2020 17:20:54 Administration of SARS-CoV-2 antigen vaccine 717602325 Z23 Health Concerns Section Related Observation LastModified by Organization Detai ls LastModified Time None Recorded Concern Status LastModified by Organization Details LastModified Time None Recorded Advance Directives Directive None Recorded Payers Encounter Date Sequence Insurance Name Policy Number Policy Ballard Covered Member ID Ballard Member ID Guarantor Name 04/04/2014 1 [id number]/25/2016 1 [facility] [id number] [facility] 04/29/2020 1 [place] [facility] [id number] [facility] [place] 04/29/2020 2 [facility] [facility]MEDICARE SUPPLEMENT[facility] [place] [id number] [facility] 07/04/2020 1 [place] [facility] [id number] [facility] [place] 07/04/2020 2 [employer] [facility] FOR [facility] (MEDICARE SUPPLEMENT) [facility] [place] [id number] [facility] 08/01/2020 1 [place] [facility] [id number] [facility] [place] 08/01/2020 2 [employer] - FOR LIFE (MEDICARE SUPPLEMENT) [facility] [id number] [facility] Notes Date Note Type Note Provider Name [...] De La Rosa MD Attn: Accounting,[address] [facility], [place], [address], [place] 04/29/2020 14:22:49
--- NOTE | 2024-07-27 11:44 | WPDSLEEPSTUD ---
Sleep Study Date of Study: 07/04/24 Ordering Provider: Ellis Muhammad MD Interpreting Physician: Rin Barnard MD Sleep Study Type: Split Polysomnogram Height: 1.83 m Weight: 138.799 kg Body Mass Index: 41.5 Neck Circumference (inches): 20 [place]: 13 Reason for Sleep Study * 03/30/2023; Split night sleep study, severe obstructive sleep apnea, AHI of 49.4 with desaturation down to 78%. Optimal pressure was CPAP 15 cm H2O with EPR of 1, size large Resmed AirFit F20 FFM Sleep History Mian Marsh is a 69-year-old male with diabetes, hyperlipidemia, morbid obesity and history of tobacco use who had a sleep study in 2022 showing severe obstructive sleep apnea, AHI of 49.4 with desaturation down to 78%. His optimal pressure was CPAP 15 cm H2O with EPR of 1, size large Resmed AirFit F20 FFM. The patient frequently awakens from sleep short of breath. He frequently awakens at night with heartburn, belching or cough. He constantly snores loudly enough that others complain. He constantly has trouble sleeping when he has a cold. He occasionally wakes up gasping for air throughout the night. He frequently has breathing problems at night observed by himself or others. He rarely sweats excessively at night. He occasionally has heart palpitations or irregular heartbeats during the night. He occasionally falls asleep during the day but never while driving. He denies sleep paralysis and cataplexy. He rarely has trouble at school or work due to sleepiness. He frequently experiences vivid dreamlike scenes upon awakening or falling asleep. He denies feeling afraid of going to sleep. He rarely has nightmares. He occasionally remembers his point he frequently has thoughts racing through his mind. He occasionally feels sad or depressed. He rarely has anxiety. He rarely has muscular tension. He frequently notices parts of his body jerk. He frequently kicks during the night. He rarely has crawling and aching feelings in his legs but occasionally has leg pain during the night. He denies grinding his teeth during sleep and denies awakening with morning jaw pain. He is occasionally bothered by pain during the day but rarely awakened by pain during the night. He occasionally wakes up feeling stiff in the morning. He occasionally wakes up with sore or achy muscles. He occasionally wakes up with pain in the neck, spine and other joints. He goes to bed at 11:30 p.m. on weekdays and at 12:30 a.m. on the weekends. He can take him up to an hour to fall asleep. He wakes up 3-4 times throughout the night to urinate and is able to fall back asleep within 5 minutes. He wakes up at 6:00 a.m. on both weekdays and weekends. He typically gets 4 hours of sleep per night. He will stay in bed for 5 minutes after waking up in the morning. He currently lives with his . He denies consuming any caffeinated beverages within 2 hours of bedtime. He denies engaging in physical exercise before bedtime. He will read and watch television before falling asleep. He will take naps in the afternoon or the evening but they are not refreshing. He consumes 2 cups of caffeinated beverage per day. He will have 1-2 alcoholic beverages once monthly. He quit smoking cigarettes 30 years ago. He denies recreational drug use. 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 Smoking packs per day: 1.5 Smoking cigarettes per day: 30.0 Years smoked: 30 Smoking pack-years: 45.00 Smoking status: Former smoker Tobacco type: cigarettes Second hand tobacco smoke exposure: No Alcohol intake: current Drinks per week: 1 Alcohol use details: rare, social ETOH Substance use: never Substance use type: does not use Lack of Transportation: No Lack of Food: Never True Current Housing: I Have Housing Concerned About Future Housing: No Difficulty Paying Gas/Electric Bills: No Difficulty Paying for Meds: No Currently Unemployed: No Education: Associate Degree Difficulty w/ Childcare or Family Care: No Living arrangements: with family Occupation/Education: occupation Gender identity (if verbalized by the patient): Male Spiritual care concerns: No Medications Home Medications ?Medication ?Instructions ?Recorded ?Confirmed ?Type cholecalciferol (vitamin D3) 50 50 mcg PO DAILY #90 caps 10/26/22 03/14/24 Rx mcg (2,000 unit) capsule fluticasone propionate 50 See Rx Instructions .Route 04/20/24 Rx mcg/actuation nasal .COMPLEX PRN allergy symptoms #48 spray,suspension grams empagliflozin 25 mg-metformin ER 1 tablet PO DAILY #90 ea 04/23/24 Rx 1,000 mg tablet,extended release 24hr (Synjardy XR) atorvastatin 40 mg tablet See Rx Instructions .Route 05/05/24 Rx .COMPLEX #90 tabs nystatin-triamcinolone 100,000 1 applic topical BID #60 grams 05/05/24 Rx unit/g-0.1 % topical cream trazodone 50 mg tablet 50 mg PO QHS #30 tabs 05/05/24 Rx Sleep Procedure A split night polysomnogram using the [employer] multi-channel system recorded the standard physiologic parameters including EEG, EOG, submentalis EMG, anterior tibialis EMG, EKG, body position, nasal and oral airflow using nasal pressure sensor and thermistor. Respiratory parameters of chest and abdominal movements were recorded with Respiratory Inductance Plethysmography belts. Oxygen saturation was recorded by pulse oximetry. Video monitoring was also performed. Sleep stages, periodic limb movements, and EEG arousals were scored in 30 second epochs according to the criteria of the AASM Scoring Manual. The Apnea-Hypopnea Index was calculated using CMS guidelines for definition of hypopnea while scoring respiratory events. Patient self-administered trazodone 50 mg at the beginning of the study. After the baseline portion the patient met criteria for a titration with an AHI of 51.7 and desaturation to 82%. Patient used a large ResMed AirTouch F20 fullface mask with heated humidity, had quite a bit of anxiety about wearing the mask. He could not tolerate CPAP of 5 cm, the tech therefore increase the pressure to CPAP 7 with 2 of EPR for comfort. Several adjustments were made so that he could fall asleep. CPAP was used with EPR 2 cm at all pressures attempted. This include CPAP 7, CPAP 8, 10, 12, 13, and 15, with the optimal pressure appearing to be CPAP 15 with 2 cm EPR. At this pressure the patient spent 91 minutes in bed, 24.5 minutes awake, 58.5 minutes in non-REM and 8 minutes in REM. Sleep efficiency was 73.1%. The residual apnea-hypopnea index was 7.2 and the average saturation was 90%. Sleep was very fragmented during the night he had frequent awakenings and frequent position changes. Sleep Architecture During the diagnostic portion of the study, the total recording time was 282.7 minutes. The total sleep time was 115.0 minutes. Sleep latency was 27.7 minutes. There was no REM on the baseline. Sleep Efficiency was 40.7%. The patient had 24 awakenings for an awakening index of 12.5. Wake after sleep onset time was 140.0 minutes. The patient spent 28.5 minutes, 24.8% of total sleep time in Stage N1. The patient spent 86.5 minutes, 75.2% in Stage N2. The patient spent no time in Stage N3 or Stage REM sleep. At 03:27:20 AM the patient was placed on PAP treatment. During the treatment portion of the study, the total recording time was 208.8 minutes. The total sleep time was 138.5 minutes. Sleep latency was 0.0 minutes. REM latency was 52.0 minutes. Sleep Efficiency was 66.3%. Wake after Sleep Onset time was 70.0 minutes. The patient spent 11.5 minutes, 8.3% of total sleep time in Stage N1. The patient spent 86.0 minutes, 62.1% in Stage N2. The patient spent 0.5 minutes, 0.4% in Stage N3. The patient spent 40.5 minutes, 29.2% in Stage REM. Respiratory Analysis During the diagnostic portion of the study, the patient had 96 hypopneas, 5 obstructive apneas, no mixed apneas, and no central apneas for an overall Apnea Hypopnea Index of 51.7 events per hour. The REM Apnea Hypopnea Index was 0 as there was no REM on the baseline. The NREM Apnea Hypopnea Index was 51.7. The patient had a Central Apnea Hypopnea Index of 0. There were no Respiratory Effort Related Arousals. The Respiratory Disturbance Index is 52.2 events per hour. There was no evidence of Heath-Garay Respirations. During the treatment portion of the study, the patient had 24 hypopneas, 1 obstructive apnea, no mixed apneas, and no central apneas for an overall Apnea Hypopnea Index of 10.8 events per hour. The REM Apnea Hypopnea Index was 20.7. The NREM Apnea Hypopnea Index was 6.7. The patient had a Central Apnea Hypopnea Index of 0. There were no Respiratory Effort Related Arousals. The Respiratory Disturbance Index is 10.8 events per hour. There was no evidence of Heath-Garay Respirations. Arousals During the diagnostic portion of the study, there were a total of 136 arousals for an arousal index of 71.0. There were 64 respiratory arousals for an index of 33.4. There were 32 periodic limb movement arousals for an index of 16.7. There were 2 isolated limb movement arousals for an index of 1.0. There were 38 spontaneous arousals for an index of 19.8. During the treatment portion of the study, there were a total of 25 arousals for an index of 10.8. There were 6 respiratory arousals for an index of 2.6. There were no periodic limb movement arousals. There were 2 isolated limb movement arousals for an index of 0.9. There were 17 spontaneous arousals for an index of 7.4. Periodic Limb Movements During the diagnostic portion of the study, the patient had 6 isolated limb movements with an index of 3.1. The patient had 83 periodic limb movements with an index of 43.3. The patient had a total of 89 limb movements with a total limb movement index of 46.4. During the treatment portion of the study, the patient had 11 isolated limb movements with an index of 4.8. The patient had 28 periodic limb movements with an index of 12.1. The patient had a total of 39 limb movements with a total limb movement index of 16.9. Oximetry Data During the diagnostic portion of the study, the patient had an average oxygen saturation of 92% in wake with a minimum oxygen saturation of 82% and a maximum oxygen saturation of 96%. The patient had an average oxygen saturation of 89.9% in sleep with a minimum oxygen saturation of 82% and a maximum oxygen saturation of 96%. The patient had 107 oxygen desaturations resulting in an Oxygen Desaturation Index of 55.8. The patient spent 36.7 minutes, 13.3% of total sleep time with an oxygen saturation less than 88%. During the treatment portion of the study, the patient had an average oxygen saturation of 92.5% in wake with a minimum oxygen saturation of 86% and a maximum oxygen saturation of 97%. The patient had an average oxygen saturation of 89.3% in sleep with a minimum oxygen saturation of 78% and a maximum oxygen saturation of 96%. The patient had 27 oxygen desaturations resulting in an Oxygen Desaturation Index of 11.7. The patient spent 46.4 minutes, 22.7% of total sleep time with an oxygen saturation less than 88%. Snoring Profile Snoring was moderate, eliminated at the optimal pressure. Cardiac Profile During the diagnostic portion of the study, the EKG showed normal sinus rhythm. The average pulse rate was 64.7 bpm. The minimum pulse rate was 49 bpm. The maximum pulse rate was 92 bpm. No arrhythmias noted. During the treatment portion of the study, the EKG showed normal sinus rhythm. The average pulse rate was 62.4 bpm. The minimum pulse rate was 50 bpm. The maximum pulse rate was 83 bpm. No arrhythmias noted. EEG Profile EEG was unremarkable, no evidence of seizures. Assessment and Plan Assessment and Plan (1) Obstructive sleep apnea: Code(s): G47.33 - Obstructive sleep apnea (adult) (pediatric) Status: Acute Assessment and Plan: This split night sleep study on 07/04/2024 shows extremely severe obstructive sleep apnea, the baseline sleep apnea-hypopnea index was 51.7 with desaturation 82% without REM on the baseline. Patient was successfully treated using a large ResMed AirTouch F20 fullface mask and heated humidity with an optimal pressure of CPAP 15 and 2 cm of EPR. The patient had significant anxiety and the central service tech created a excellent environment for the patient use PAP well, with residual apnea-hypopnea index of 7.2 with a small amount of REM in the left lateral position. This patient may require PAP desensitization to acclimate to the use of positive airway pressure. He may also require gentle sedative to use nightly while he adapted the use of PAP. The patient should be prescribed this ResMed equipment as well as tubing, filters and reservoir. This should be used with all episodes of sleep. Compliance should be reviewed within 31-90 days of starting therapy for usage greater than 4 hours per night greater than 70% of the nights. The patient should be asked about symptoms such as excessive daytime sleepiness, quality of sleep, decreased nocturia, increased mental functioning such as memory, mood, and concentration. Patient had a split night study in March 2023 with very similar findings as far as the severity of illness, desaturation and the optimal pressure for treatment. His sleep questionnaire indicates that he has frequent leg movements at night, although he has only occasional uncomfortable feelings in his legs at night. During this study, he had excessive limb movements during the baseline but is periodic limb movement index was normal, 12, during the titration. He had no periodic limb movement arousals during the titration. I believe his leg movements are related to untreated sleep apnea. His history does not sound convincing for restless legs syndrome. BMI is 41.5. Weight management is advised. Clinical data suggests that weight loss of 10% can reduce the severity of respiratory events and snoring and improve AHI by as much as 25%. Data The data obtained during this sleep study is adequate for interpretation. Certification This sleep study has been reviewed by a board certified sleep medicine physician.
[2024-08-02 22:21] VITALS: BMI 41.5
== END 2024-07-05 07:29 | disposition home or self-care (01) ==
PROVIDERS: PCP Internal Medicine; Visit Provider Internal Medicine
DX: G47.33 Obstructive sleep apnea (adult) (pediatric) (principal); Z68.41 Body mass index [BMI] 40.0-44.9, adult
CPT/HCPCS: 95811